=== PATIENT | male | born 1965 | race Caucasian/White ===

== ENCOUNTER 2016-11-12 07:56 | Day surgery (SDC) | payer BC ==
[2016-11-12] MEDS ORDERED: Lactated Ringers 1,000 ML IV SCH (08:10)
[2016-11-12] MEDS ORDERED: Propofol 200 MG/20 ML SDV ONE ×2 (10:21→10:44)
[2016-11-12] MEDS ORDERED: fentaNYL 100 MCG/2 ML SDV ONE (10:21)
[2016-11-12] MEDS ORDERED: Midazolam 1 MG/ML 2 ML SDV ONE (10:21)
[2016-11-12 11:46] VITALS: BP 144/89
--- NOTE | 2016-11-12 12:26 | OR ---
DATE OF PROCEDURE: 11/12/2016 PREOPERATIVE DIAGNOSIS: Colon cancer screening. POSTOPERATIVE DIAGNOSIS: Diverticulosis. PROCEDURE: Colonoscopy to the cecum. ANESTHESIA: IV anesthesia with monitored anesthesia care. INDICATIONS: This 51-year-old white male was referred for a colonoscopy for colon cancer screening. He has never had a colonoscopic exam. I counseled him for the procedure including risks and alternatives and he gave his informed consent to proceed. PROCEDURE IN DETAILS: The patient was placed in the left lateral decubitus position. IV anesthesia was administered by the Anesthesia Service. Time-out was held. A rectal exam was performed, which was unremarkable. The flexible video Olympus colonoscope was introduced through his anus, up his rectum, and out his colon all way to the cecum. Once the cecum was reached, the scope was slowly withdrawn examining the mucosa throughout. No mucosal abnormalities were noted till we reached the sigmoid colon. Here, we saw a couple of scattered diverticula. There was no bleeding or inflammation associated with them. The scope was retroflexed in the rectum with the distal rectum appearing unremarkable. The scope was straightened and removed. He tolerated the procedure well. Vaibhav Hickey MD /[id number]
== END 2016-11-12 11:48 | disposition home or self-care (01) ==
LOC: JP.SDS 07:56
PROVIDERS: ATTEND Surgery
DX: Z12.11 Encounter for screening for malignant neoplasm of colon (principal); K57.30 Diverticulosis of large intestine without perforation or abscess without bleeding; E78.00 Pure hypercholesterolemia, unspecified; E11.9 Type 2 diabetes mellitus without complications
CPT/HCPCS: 45378; J2250; J2704; J3010; J7120

== ENCOUNTER 2022-12-08 09:59 | Inpatient (IN) | payer BC ==
[2022-12-08] MEDS ORDERED: Sodium Chloride 0.9% 1,000 ML IV ONE ×2 (10:31→11:13)
[2022-12-08] MEDS ORDERED: Ondansetron 4 MG/2 ML SDV IVPUSH ONE (10:31)
[2022-12-08] MEDS ORDERED: Sodium Chloride 0.9% 10 ML Syringe FLUSH PRN ×2 (10:31→11:19)
[2022-12-08 10:49] LABS: HEMATOCRIT 51.8 % (38.4-49.7); HEMOGLOBIN 17.2 g/dL (12.9-16.9); MEAN CORPUSCULAR HEMOGLOBIN 29.7 pg (31.6-35.5); MEAN CORPUSCULAR HGB CONC 33.2 g/dL (31.6-35.5); MEAN CORPUSCULAR VOLUME 89.5 fL (81.4-99.0); PLATELET COUNT,PLT 162 K/uL (130-375); RED BLOOD CELL COUNT 5.79 M/uL (4.14-5.76); WHITE BLOOD CELL COUNT,WBC 10.4 K/uL (3.2-11.0)
[2022-12-08 11:02] LABS: APPEARANCE,URINE CLEAR (CLEAR); BILIRUBIN,URINE SMALL (NEGATIVE); COLOR,URINE YELLOW (YELLOW); GLUCOSE,URINE 500 mg/dL (NEGATIVE); KETONES,URINE 80 mg/dL (NEGATIVE); LEUKOCYTE ESTERASE,URINE NEGATIVE (NEGATIVE); NITRITE,URINE NEGATIVE (NEGATIVE); OCCULT BLOOD,URINE SMALL (NEGATIVE); PROTEIN,URINE 100 mg/dL (NEGATIVE); UROBILINOGEN,URINE 0.2 EU/dL (0.2-1.0)
[2022-12-08 11:09] LABS: AMORPHOUS SEDIMENT,URINE RARE; BACTERIA,URINE NOT SEEN; EPITHELIAL CELLS,URINE NOT SEEN; MUCUS,URINE NOT SEEN; RBC,URINE 0-5 (0-5); WBC,URINE NOT SEEN (0-5)
[2022-12-08 11:10] LABS: ALANINE AMINOTRANSFERASE,ALT 41 U/L (12-78); ALBUMIN 4.1 g/dL (3.4-5.0); ALKALINE PHOSPHATASE 91 U/L (46-116); ASPARTATE AMNIOTRANSFERASE,AST 23 U/L (15-37); BILIRUBIN TOTAL 0.9 mg/dL (0.2-1.0); BLOOD UREA NITROGEN,BUN 36 mg/dL (7-18); CALCIUM 9.1 mg/dL (8.5-10.1); CHLORIDE,CL 90 mmol/L (100-108); CREATININE 1.3 mg/dL (0.8-1.3); EST CRCL DRUG DOSING (CG) 67.58 mL/min; ESTIMATED GFR 64 mL/min (>60); GLUCOSE RANDOM 293 mg/dL (74-106); PROTEIN TOTAL,TP 8.4 g/dL (6.4-8.2); SODIUM,NA 125 mmol/L (140-148)
[2022-12-08 11:12] LABS: CARBON DIOXIDE,CO2 7 mmol/L (21-32)
[2022-12-08 11:19] LABS: ATYPICAL LYMPHOCYTES RARE; LYMPHOCYTES ABSOLUTE MAN 1.66 K/uL (0.8-3.3); LYMPHOCYTES PERCENT MAN 16 % (24-44); MONOCYTES ABSOLUTE MAN 0.62 K/uL (0.20-0.90); MONOCYTES PERCENT MAN 6 % (2-6); NEUTROPHILS ABSOLUTE MAN 8.11 K/uL (1.0-7.6); SEG NEUTROPHILS PERCENT MAN 78 % (36-66)
[2022-12-08] MEDS ORDERED: Insulin Regular, Human 100 Units/ML 3 ML Vial IVPUSH ONE (11:21)
[2022-12-08] MEDS ORDERED: 50% Dextrose in Water 50 ML Syringe IVPUSH PRN (11:21)
[2022-12-08] MEDS ORDERED: Glucagon,Human Recombinant 1 MG Vial IM PRN (11:21)
[2022-12-08] MEDS ORDERED: Sodium Chloride 0.9% 1,000 ML IV SCH ×2 (11:30→13:42)
[2022-12-08] MEDS ORDERED: Insulin Regular in 0.9 % NACL 100 ML IV SCH (12:00)
[2022-12-08 12:28] LABS: LYME AB IgG Negative (Negative)
[2022-12-08 12:33] LABS: LYME AB IgM Negative (Negative)
[2022-12-08] MEDS ORDERED: Magnesium Hydroxide 400 MG/5 ML Susp 30 ML Cup PO PRN (13:42)
[2022-12-08] MEDS ORDERED: HYDROmorphone 1 MG/ML Syringe IVPUSH PRN (13:42)
[2022-12-08] MEDS ORDERED: Ondansetron 4 MG Tab.DIS PO PRN (13:42)
[2022-12-08] MEDS ORDERED: Sennosides/Docusate Sodium 50-8.6 MG Tab PO PRN (13:42)
[2022-12-08] MEDS ORDERED: Ondansetron 4 MG/2 ML SDV IV PRN (13:42)
[2022-12-08] MEDS ORDERED: Acetaminophen 325 MG Tab PO PRN (13:42)
[2022-12-08] MEDS: Dextrose 5%-0.9% NaCl 1,000 ML IV SCH ×2 (14:45→23:18)
[2022-12-08 17:24] LABS: CALCIUM 7.6 mg/dL (8.5-10.1); CREATININE 1.1 mg/dL (0.8-1.3); EST CRCL DRUG DOSING (CG) 79.86 mL/min; MAGNESIUM 2.2 mg/dL (1.8-2.4); POTASSIUM,K 4.3 mmol/L (3.6-5.2)
[2022-12-08 17:28] LABS: ANION GAP 22.3 mmol/L (5.0-14.0)
[2022-12-08] MEDS: atorvaSTATin 20 MG Tab PO SCH (20:32)
[2022-12-08] MEDS: Pantoprazole 40 MG Tab.CR PO SCH (20:32)
[2022-12-08] MEDS ORDERED: Doxycycline 100 MG in Sodium Chloride 0.9% 100 ML IV ONE (21:00)
[2022-12-08 21:23] LABS: CALCIUM 7.6 mg/dL (8.5-10.1); EST CRCL DRUG DOSING (CG) 87.85 mL/min; POTASSIUM,K 3.9 mmol/L (3.6-5.2)
[2022-12-08 21:32] LABS: ANION GAP 17.9 mmol/L (5.0-14.0)
[2022-12-09 01:13] LABS: CALCIUM 7.5 mg/dL (8.5-10.1); CREATININE 0.9 mg/dL (0.8-1.3); EST CRCL DRUG DOSING (CG) 97.61 mL/min; POTASSIUM,K 3.5 mmol/L (3.6-5.2)
[2022-12-09 01:23] LABS: ANION GAP 15.5 mmol/L (5.0-14.0)
[2022-12-09 04:47] LABS: HEMOGLOBIN 13.4 g/dL (12.9-16.9); MEAN CORPUSCULAR HEMOGLOBIN 29.6 pg (31.6-35.5); MEAN CORPUSCULAR HGB CONC 34.4 g/dL (31.6-35.5); MEAN CORPUSCULAR VOLUME 86.1 fL (81.4-99.0); RED BLOOD CELL COUNT 4.53 M/uL (4.14-5.76); WHITE BLOOD CELL COUNT,WBC 8.1 K/uL (3.2-11.0)
[2022-12-09 04:58] LABS: CALCIUM 7.7 mg/dL (8.5-10.1); CREATININE 0.8 mg/dL (0.8-1.3); EST CRCL DRUG DOSING (CG) 109.81 mL/min; POTASSIUM,K 3.5 mmol/L (3.6-5.2)
[2022-12-09 05:19] LABS: ANION GAP 16.5 mmol/L (5.0-14.0)
[2022-12-09] MEDS: Dextrose 5%-0.9% NaCl 1,000 ML IV SCH ×2 (07:09→23:04)
[2022-12-09] MEDS: Pantoprazole 40 MG Tab.CR PO SCH ×2 (08:31→20:46)
[2022-12-09] MEDS: Aspirin 81 MG Tab.Chew PO SCH (08:31)
[2022-12-09] MEDS: Doxycycline 100 MG Cap PO SCH ×2 (08:31→20:47)
[2022-12-09 09:28] LABS: CALCIUM 7.6 mg/dL (8.5-10.1); EST CRCL DRUG DOSING (CG) 87.85 mL/min
[2022-12-09] MEDS ORDERED: Potassium Chloride 20 MEQ Tab.ER PO ONE (11:00)
[2022-12-09 13:19] LABS: ANION GAP 11.2 mmol/L (5.0-14.0); CALCIUM 7.8 mg/dL (8.5-10.1); CREATININE 0.9 mg/dL (0.8-1.3); EST CRCL DRUG DOSING (CG) 97.61 mL/min; POTASSIUM,K 3.2 mmol/L (3.6-5.2)
[2022-12-09 17:34] LABS: ANION GAP 12.6 mmol/L (5.0-14.0); CALCIUM 7.9 mg/dL (8.5-10.1); CREATININE 0.8 mg/dL (0.8-1.3); EST CRCL DRUG DOSING (CG) 109.81 mL/min; POTASSIUM,K 3.6 mmol/L (3.6-5.2)
[2022-12-09] MEDS: atorvaSTATin 20 MG Tab PO SCH (20:47)
[2022-12-09 21:25] LABS: CALCIUM 7.6 mg/dL (8.5-10.1); CREATININE 0.8 mg/dL (0.8-1.3); EST CRCL DRUG DOSING (CG) 109.81 mL/min; POTASSIUM,K 3.5 mmol/L (3.6-5.2)
[2022-12-09 21:26] LABS: ANION GAP 10.5 mmol/L (5.0-14.0)
[2022-12-10 05:14] LABS: CALCIUM 7.5 mg/dL (8.5-10.1); CREATININE 0.6 mg/dL (0.8-1.3); EST CRCL DRUG DOSING (CG) 146.42 mL/min; POTASSIUM,K 3.2 mmol/L (3.6-5.2)
[2022-12-10 05:30] LABS: ANION GAP 11.2 mmol/L (5.0-14.0)
[2022-12-10] MEDS ORDERED: metFORMIN 500 MG Tab PO SCH (08:00)
[2022-12-10] MEDS ORDERED: glipiZIDE 5 MG Tab PO SCH (08:00)
[2022-12-10] MEDS ORDERED: Empagliflozin 10 MG Tab PO SCH (08:00)
[2022-12-10] MEDS: Aspirin 81 MG Tab.Chew PO SCH (08:06)
[2022-12-10] MEDS: Doxycycline 100 MG Cap PO SCH (08:06)
[2022-12-10] MEDS: Pantoprazole 40 MG Tab.CR PO SCH (08:06)
[2022-12-10] MEDS ORDERED: Potassium Chloride 20 MEQ Tab.ER PO ONE (09:00)
[2022-12-10 10:26] VITALS: BP 150/79; PULSE 80
== END 2022-12-10 10:40 | disposition home or self-care (01) | DRG 724 ==
LOC: JP.ED 09:59 → JP.ICU 13:17
PROVIDERS: ADMIT Internal Medicine; ATTEND Internal Medicine
DX: A77.49 Other ehrlichiosis (principal); E11.10 Type 2 diabetes mellitus with ketoacidosis without coma; E87.6 Hypokalemia; E78.00 Pure hypercholesterolemia, unspecified; E66.9 Obesity, unspecified; Z20.822 Contact with and (suspected) exposure to COVID-19; E86.0 Dehydration; E78.5 Hyperlipidemia, unspecified; Z79.82 Long term (current) use of aspirin; Z79.84 Long term (current) use of oral hypoglycemic drugs; Z90.49 Acquired absence of other specified parts of digestive tract; Z86.14 Personal history of Methicillin resistant Staphylococcus aureus infection; S70.36 Insect bite (nonvenomous) of thigh; Z68.27 Body mass index [BMI] 27.0-27.9, adult
CPT/HCPCS: 36415; 80048; 80053; 81001; 82009; 82800; 82947; 83605; 83690; 83735; 85025; 85027; 86618; 86666; 96361; 96374; 99222; 99232; 99238; 99285-25; A9270-GY; J1815-GY; J2405; J3490; J7030; U0002

== ENCOUNTER 2024-07-10 14:44 | Inpatient (IN) | payer BC ==
[2024-07-10 16:43] LABS: AMORPHOUS SEDIMENT,URINE NOT SEEN; APPEARANCE,URINE CLEAR (CLEAR); BACTERIA,URINE FEW; BILIRUBIN,URINE SMALL (NEGATIVE); COLOR,URINE YELLOW (YELLOW); EPITHELIAL CELLS,URINE RARE; GLUCOSE,URINE 500 mg/dL (NEGATIVE); KETONES,URINE 80 mg/dL (NEGATIVE); LEUKOCYTE ESTERASE,URINE NEGATIVE (NEGATIVE); MUCUS,URINE RARE; NITRITE,URINE NEGATIVE (NEGATIVE); OCCULT BLOOD,URINE LARGE (NEGATIVE); PH,URINE 5.5 (5.0-8.0); PROTEIN,URINE 30 mg/dL (NEGATIVE); RBC,URINE 50-75 (0-5); UROBILINOGEN,URINE 0.2 EU/dL (0.2-1.0); WBC,URINE 0-5 (0-5)
[2024-07-10] MEDS: Sodium Chloride 0.9% 1,000 ML IV ONE ×2 (16:52→18:20)
[2024-07-10] MEDS: Alum Hydrox/Mag Hydrox/Simeth 15 ML, Lidocaine 2% 15 ML PO ONE (16:55)
[2024-07-10 16:57] LABS: HEMATOCRIT 50.8 % (38.4-49.7); HEMOGLOBIN 17.2 g/dL (12.9-16.9); MEAN CORPUSCULAR HEMOGLOBIN 30.2 pg (31.6-35.5); MEAN CORPUSCULAR HGB CONC 33.9 g/dL (31.6-35.5); MEAN CORPUSCULAR VOLUME 89.1 fL (81.4-99.0); PLATELET COUNT,PLT 296 K/uL (130-375)
[2024-07-10] MEDS: Ondansetron 4 MG/2 ML SDV IVPUSH ONE (16:57)
[2024-07-10] MEDS: Morphine 2 MG/ML SYRINGE IVPUSH ONE ×2 (16:57→18:20)
[2024-07-10 17:16] LABS: A/G RATIO 1.2 (1.2-2.2); ALANINE AMINOTRANSFERASE,ALT 19 U/L (12-78); ALBUMIN 4.4 g/dL (3.4-5.0); ALKALINE PHOSPHATASE 88 U/L (46-116); ASPARTATE AMNIOTRANSFERASE,AST 12 U/L (15-37); BLOOD UREA NITROGEN,BUN 31 mg/dL (7-18); CHLORIDE,CL 94 mmol/L (100-108); CREATININE 1.5 mg/dL (0.8-1.3); EST CRCL DRUG DOSING (CG) 57.17 mL/min; ESTIMATED GFR 54 mL/min (>60); GLUCOSE RANDOM 198 mg/dL (74-106); POTASSIUM,K 3.3 mmol/L (3.6-5.2); PROTEIN TOTAL,TP 8.2 g/dL (6.4-8.2); SODIUM,NA 134 mmol/L (140-148)
[2024-07-10 17:20] LABS: ANION GAP 30.3 mmol/L (5.0-14.0); CARBON DIOXIDE,CO2 13 mmol/L (21-32)
[2024-07-10 17:25] LABS: BAND ABSOLUTE MAN 0.63 K/uL; BAND PERCENT MAN 3 % (5-11); LYMPHOCYTES ABSOLUTE MAN 0.21 K/uL (0.8-3.3); LYMPHOCYTES PERCENT MAN 1 % (24-44); MONOCYTES ABSOLUTE MAN 1.26 K/uL (0.20-0.90); MONOCYTES PERCENT MAN 6 % (2-6); SEG NEUTROPHILS PERCENT MAN 90 % (36-66)
[2024-07-10 17:37] LABS: CARBOXYHEMOGLOBIN 1.1 % (0.0-1.6); METHEMOGLOBIN 1.3 %; O2 SATURATION ARTERIAL 95.5 % (95.0-98.0); OXYHEMOGLOBIN 93.2 %; PCO2 ARTERIAL 26.2 mmHg (35.0-42.0); PO2 ARTERIAL 89.9 mmHg (75.0-100.0)
[2024-07-10 17:39] LABS: LACTIC ACID 0.8 mmol/L (0.4-2.0)
[2024-07-10] MEDS: Iopamidol 612 MG/ML 100 ML Bottle IV SCH (18:04)
[2024-07-10] MEDS: Sodium Chloride 0.9% 80 ML IV SCH (18:04)
[2024-07-10] MEDS: Potassium Chloride 20 MEQ in Premix Bag 1 BAG IV ONE (18:22)
[2024-07-10 19:31] LABS: CALCIUM 8.7 mg/dL (8.5-10.1); CREATININE 1.4 mg/dL (0.8-1.3); EST CRCL DRUG DOSING (CG) 61.26 mL/min; POTASSIUM,K 3.3 mmol/L (3.6-5.2)
[2024-07-10 19:33] LABS: ANION GAP 27.3 mmol/L (5.0-14.0)
[2024-07-10] MEDS ORDERED: Naloxone 0.4 MG/ML SDV IVPUSH PRN (21:38)
[2024-07-10] MEDS: Morphine 4 MG/ML Syringe IVPUSH ONE (21:50)
[2024-07-10] MEDS: Lactated Ringers 1,000 ML IV SCH (21:50)
[2024-07-11] MEDS: Morphine 4 MG/ML Syringe IVPUSH ONE (04:59)
[2024-07-11 06:03] LABS: BASOPHILS PERCENT AUTO 0.2 % (0.1-1.3); EOSINOPHILS ABSOLUTE AUTO 0.04 K/uL (0.00-0.40); EOSINOPHILS PERCENT AUTO 0.3 % (0.0-5.4); HEMATOCRIT 45.4 % (38.4-49.7); IMMATURE GRAN ABSOLUTE AUTO 0.22 K/uL (0.00-0.23); IMMATURE GRAN PERCENT AUTO 1.7 % (0.0-0.7); LYMPHOCYTES ABSOLUTE AUTO 0.82 K/uL (0.8-3.3); LYMPHOCYTES PERCENT AUTO 6.3 % (11.4-47.7); MEAN CORPUSCULAR HEMOGLOBIN 30.2 pg (31.6-35.5); MEAN CORPUSCULAR VOLUME 91.3 fL (81.4-99.0); MONOCYTES ABSOLUTE AUTO 2.21 K/uL (0.20-0.90); NEUTROPHILS ABSOLUTE AUTO 9.72 K/uL (1.0-7.6); NEUTROPHILS PERCENT AUTO 74.5 % (40.0-78.1); PLATELET COUNT,PLT 208 K/uL (130-375); RED BLOOD CELL COUNT 4.97 M/uL (4.14-5.76)
[2024-07-11 06:10] LABS: BASOPHILS ABSOLUTE AUTO 0.02 K/uL (0.00-0.10)
[2024-07-11 06:18] LABS: CALCIUM 8.2 mg/dL (8.5-10.1); CREATININE 1.4 mg/dL (0.8-1.3); EST CRCL DRUG DOSING (CG) 61.26 mL/min; MAGNESIUM 2.4 mg/dL (1.8-2.4); POTASSIUM,K 3.5 mmol/L (3.6-5.2)
[2024-07-11 06:19] LABS: ANION GAP 24.5 mmol/L (5.0-14.0)
[2024-07-11] MEDS ORDERED: Glucagon,Human Recombinant 1 MG Vial IM PRN ×2 (06:40→13:54)
[2024-07-11] MEDS: 50% Dextrose in Water 50 ML Syringe IVPUSH PRN (07:40)
[2024-07-11] MEDS: Insulin Lispro 100 Units/ML 3 ML Vial SUBCUT ONE (07:40)
[2024-07-11] MEDS: 50% Dextrose in Water 50 ML Syringe IVPUSH ONE ×2 (07:43→14:22)
[2024-07-11 10:23] LABS: CALCIUM 8.6 mg/dL (8.5-10.1); CREATININE 1.2 mg/dL (0.8-1.3); EST CRCL DRUG DOSING (CG) 71.47 mL/min; POTASSIUM,K 3.9 mmol/L (3.6-5.2)
[2024-07-11 10:24] LABS: ANION GAP 20.9 mmol/L (5.0-14.0)
[2024-07-11] MEDS: Morphine 2 MG/ML SYRINGE IVPUSH ONE (11:12)
[2024-07-11] MEDS: Sodium Chloride 0.9% 500 ML IV ONE ×2 (12:29→14:29)
[2024-07-11 13:43] LABS: CALCIUM 8.3 mg/dL (8.5-10.1); CREATININE 1.1 mg/dL (0.8-1.3); EST CRCL DRUG DOSING (CG) 77.96 mL/min; POTASSIUM,K 3.3 mmol/L (3.6-5.2)
[2024-07-11 13:45] LABS: ANION GAP 26.3 mmol/L (5.0-14.0)
[2024-07-11] MEDS ORDERED: Potassium Chloride 20 MEQ in Premix Bag 1 BAG IV ONE (13:51)
[2024-07-11] MEDS ORDERED: 50% Dextrose in Water 50 ML Syringe IVPUSH PRN ×2 (13:54→14:24)
[2024-07-11 14:14] LABS: HEMOGLOBIN A1C 7.1 % (4.5-6.2)
[2024-07-11] MEDS: Insulin Regular, Human 100 Units/ML 3 ML Vial IVPUSH ONE (14:22)
[2024-07-11] MEDS ORDERED: Potassium Chloride 10% 20 MEQ/15 ML Soln 15 ML UD Cup PO PRN ×2 (14:24→15:58)
[2024-07-11] MEDS ORDERED: Magnesium Sulf/Wat 2 GM/50 mL 50 ML IV PRN (14:24)
[2024-07-11] MEDS ORDERED: Potassium Chloride 20 MEQ in Premix Bag 1 BAG IV PRN (14:24)
[2024-07-11] MEDS ORDERED: Sodium Phosphate 60 MMOLE in Sodium Chloride 0.9% 250 ML IV PRN (14:24)
[2024-07-11] MEDS: Potassium Chloride 10 MEQ in Premix Bag 1 BAG IV SCH (14:29)
[2024-07-11] MEDS: Ketorolac 15 MG/ML SDV IVPUSH ONE (14:30)
[2024-07-11] MEDS ORDERED: Sodium Chloride 0.9% 10 ML Syringe FLUSH PRN (15:16)
[2024-07-11] MEDS ORDERED: Ondansetron 4 MG/2 ML SDV IV PRN (15:16)
[2024-07-11] MEDS ORDERED: Polyethylene Glycol 3350 Powder 17 GM Packet PO PRN (15:16)
[2024-07-11 15:22] LABS: CALCIUM 8.1 mg/dL (8.5-10.1); CREATININE 1.2 mg/dL (0.8-1.3); EST CRCL DRUG DOSING (CG) 71.47 mL/min; MAGNESIUM 2.3 mg/dL (1.8-2.4); PHOSPHORUS 2.6 mg/dL (2.5-4.9); POTASSIUM,K 3.3 mmol/L (3.6-5.2)
[2024-07-11 15:23] LABS: ANION GAP 27.3 mmol/L (5.0-14.0)
[2024-07-11] MEDS: Sodium Chloride 0.9% 2,000 ML IV PRN (16:19)
[2024-07-11] MEDS: Enoxaparin 40 MG/0.4 ML Syringe SUBCUT SCH (16:20)
[2024-07-11] MEDS: Insulin Regular in 0.9 % NACL 100 ML IV SCH (16:20)
[2024-07-11] MEDS: Acetaminophen 325 MG Tab PO PRN (17:17)
[2024-07-11] MEDS: Calcium Carbonate 500 MG Tab.Chew PO PRN (17:40)
[2024-07-11] MEDS: Dextrose 5%-0.45% NaCl 1,000 ML IV PRN (18:26)
[2024-07-11 19:17] LABS: CALCIUM 7.9 mg/dL (8.5-10.1); CREATININE 1.2 mg/dL (0.8-1.3); EST CRCL DRUG DOSING (CG) 70.92 mL/min; POTASSIUM,K 3.4 mmol/L (3.6-5.2)
[2024-07-11 19:19] LABS: ANION GAP 22.4 mmol/L (5.0-14.0)
[2024-07-11] MEDS: Potassium Chloride 20 MEQ in Premix Bag 1 BAG IV PRN (19:32)
[2024-07-11] MEDS: Ketorolac 30 MG/ML SDV IVPUSH PRN (21:11)
[2024-07-11 21:32] LABS: MAGNESIUM 2.1 mg/dL (1.8-2.4); PHOSPHORUS 1.8 mg/dL (2.5-4.9); POTASSIUM,K 3.6 mmol/L (3.6-5.2)
[2024-07-11] MEDS: atorvaSTATin 20 MG Tab PO SCH (21:37)
[2024-07-11] MEDS: HYDROmorphone 0.5 MG/0.5 ML Syringe IVPUSH ONE (21:57)
[2024-07-11 23:27] LABS: CALCIUM 7.9 mg/dL (8.5-10.1); CREATININE 1.3 mg/dL (0.8-1.3); EST CRCL DRUG DOSING (CG) 65.47 mL/min; POTASSIUM,K 3.9 mmol/L (3.6-5.2)
[2024-07-11 23:28] LABS: ANION GAP 18.9 mmol/L (5.0-14.0)
[2024-07-12] MEDS: Potassium Chloride 20 MEQ in Premix Bag 1 BAG IV PRN (01:50)
[2024-07-12 03:36] LABS: ANION GAP 17.7 mmol/L (5.0-14.0); CALCIUM 8.2 mg/dL (8.5-10.1); CREATININE 1.3 mg/dL (0.8-1.3); EST CRCL DRUG DOSING (CG) 65.47 mL/min; MAGNESIUM 2.1 mg/dL (1.8-2.4); PHOSPHORUS 1.5 mg/dL (2.5-4.9); POTASSIUM,K 3.7 mmol/L (3.6-5.2)
[2024-07-12 05:24] LABS: BASOPHILS PERCENT AUTO 0.2 % (0.1-1.3); EOSINOPHILS PERCENT AUTO 0.2 % (0.0-5.4); HEMATOCRIT 39.3 % (38.4-49.7); HEMOGLOBIN 13.5 g/dL (12.9-16.9); IMMATURE GRAN ABSOLUTE AUTO 0.03 K/uL (0.00-0.23); IMMATURE GRAN PERCENT AUTO 0.4 % (0.0-0.7); LYMPHOCYTES PERCENT AUTO 10.8 % (11.4-47.7); MEAN CORPUSCULAR HEMOGLOBIN 30.2 pg (31.6-35.5); MEAN CORPUSCULAR HGB CONC 34.4 g/dL (31.6-35.5); MEAN CORPUSCULAR VOLUME 87.9 fL (81.4-99.0); MONOCYTES ABSOLUTE AUTO 1.18 K/uL (0.20-0.90); MONOCYTES PERCENT AUTO 14.1 % (3.3-12.6); NEUTROPHILS ABSOLUTE AUTO 6.21 K/uL (1.0-7.6); NEUTROPHILS PERCENT AUTO 74.3 % (40.0-78.1); PLATELET COUNT,PLT 180 K/uL (130-375); RED BLOOD CELL COUNT 4.47 M/uL (4.14-5.76); WHITE BLOOD CELL COUNT,WBC 8.4 K/uL (3.2-11.0)
[2024-07-12 05:25] LABS: BASOPHILS ABSOLUTE AUTO 0.02 K/uL (0.00-0.10); EOSINOPHILS ABSOLUTE AUTO 0.02 K/uL (0.00-0.40)
[2024-07-12 05:43] LABS: HEMOGLOBIN A1C 7.1 % (4.5-6.2)
[2024-07-12] MEDS: Potassium Chloride 10% 20 MEQ/15 ML Soln 15 ML UD Cup PO PRN (06:00)
[2024-07-12] MEDS: Sodium Chloride 0.9% 500 ML IV ONE (07:00)
[2024-07-12 07:18] LABS: CALCIUM 8.1 mg/dL (8.5-10.1); CREATININE 1.2 mg/dL (0.8-1.3); EST CRCL DRUG DOSING (CG) 70.92 mL/min
[2024-07-12] MEDS: Aspirin 81 MG Tab.Chew PO SCH (09:31)
[2024-07-12 10:02] LABS: PHOSPHORUS 1.3 mg/dL (2.5-4.9); POTASSIUM,K 3.6 mmol/L (3.6-5.2)
[2024-07-12 11:14] LABS: CREATININE 1.2 mg/dL (0.8-1.3); EST CRCL DRUG DOSING (CG) 70.92 mL/min; POTASSIUM,K 3.9 mmol/L (3.6-5.2)
[2024-07-12 11:24] LABS: ANION GAP 15.9 mmol/L (5.0-14.0)
[2024-07-12] MEDS: Potassium Chloride 10 MEQ in Premix Bag 1 BAG IV SCH (13:52)
[2024-07-12 14:18] LABS: CALCIUM 7.9 mg/dL (8.5-10.1); CREATININE 1.3 mg/dL (0.8-1.3); EST CRCL DRUG DOSING (CG) 63.95 mL/min; PHOSPHORUS 0.9 mg/dL (2.5-4.9); POTASSIUM,K 4.3 mmol/L (3.6-5.2)
[2024-07-12 14:23] LABS: ANION GAP 12.3 mmol/L (5.0-14.0)
[2024-07-12] MEDS: Sodium Phosphate 60 MMOLE in Sodium Chloride 0.9% 250 ML IV PRN (15:12)
[2024-07-12] MEDS: Empagliflozin 25 MG Tab PO SCH (15:21)
[2024-07-12] MEDS ORDERED: Non-Formulary Medication 1 Each (Metformin [Glucophage] 1,000 MG Tablet) PO SCH (17:00)
[2024-07-12] MEDS: metFORMIN 500 MG Tab PO SCH (17:21)
[2024-07-12 18:44] LABS: CALCIUM 7.9 mg/dL (8.5-10.1); CREATININE 1.3 mg/dL (0.8-1.3); EST CRCL DRUG DOSING (CG) 63.95 mL/min; POTASSIUM,K 3.7 mmol/L (3.6-5.2)
[2024-07-12 18:47] LABS: ANION GAP 14.7 mmol/L (5.0-14.0)
[2024-07-12 21:14] LABS: MAGNESIUM 1.9 mg/dL (1.8-2.4); POTASSIUM,K 3.6 mmol/L (3.6-5.2)
[2024-07-12] MEDS: Tamsulosin 0.4 MG Cap.ER PO SCH (21:20)
[2024-07-12 22:22] LABS: CALCIUM 8.1 mg/dL (8.5-10.1); EST CRCL DRUG DOSING (CG) 83.14 mL/min; POTASSIUM,K 3.6 mmol/L (3.6-5.2)
[2024-07-12 22:23] LABS: ANION GAP 10.6 mmol/L (5.0-14.0)
[2024-07-13 02:28] LABS: EST CRCL DRUG DOSING (CG) 83.14 mL/min; MAGNESIUM 1.9 mg/dL (1.8-2.4); PHOSPHORUS 2.1 mg/dL (2.5-4.9); POTASSIUM,K 3.7 mmol/L (3.6-5.2)
[2024-07-13 02:29] LABS: ANION GAP 10.7 mmol/L (5.0-14.0)
[2024-07-13 06:23] LABS: ANION GAP 9.9 mmol/L (5.0-14.0); CALCIUM 8.2 mg/dL (8.5-10.1); EST CRCL DRUG DOSING (CG) 83.14 mL/min; POTASSIUM,K 3.9 mmol/L (3.6-5.2)
[2024-07-13] MEDS: Potassium Chloride 10 MEQ in Premix Bag 1 BAG IV SCH (07:48)
[2024-07-13] MEDS ORDERED: Glucose Gel 15 GM in 37.5 GM Tube PO PRN (08:09)
[2024-07-13] MEDS ORDERED: 50% Dextrose in Water 50 ML Syringe IV PRN (08:09)
[2024-07-13 08:25] LABS: MAGNESIUM 1.9 mg/dL (1.8-2.4); PHOSPHORUS 1.9 mg/dL (2.5-4.9); POTASSIUM,K 3.4 mmol/L (3.6-5.2)
[2024-07-13] MEDS: Potassium Chloride 20 MEQ Tab.ER PO ONE (09:05)
[2024-07-13] MEDS: Insulin Lispro 100 Unit/ML 3 ML KwikPen SUBCUT SCH (11:35)
[2024-07-13 17:20] LABS: CALCIUM 8.4 mg/dL (8.5-10.1); CREATININE 1.1 mg/dL (0.8-1.3); EST CRCL DRUG DOSING (CG) 75.58 mL/min; POTASSIUM,K 4.1 mmol/L (3.6-5.2)
[2024-07-13 17:21] LABS: ANION GAP 11.1 mmol/L (5.0-14.0)
[2024-07-14 06:22] LABS: CALCIUM 8.3 mg/dL (8.5-10.1); CREATININE 0.7 mg/dL (0.8-1.3); EST CRCL DRUG DOSING (CG) 118.77 mL/min; POTASSIUM,K 3.8 mmol/L (3.6-5.2)
[2024-07-14 06:28] LABS: ANION GAP 10.8 mmol/L (5.0-14.0)
[2024-07-14 13:35] VITALS: BP 142/79; PULSE 91
== END 2024-07-14 12:44 | disposition home or self-care (01) | DRG 420 ==
LOC: JP.ED 14:44 → JP.ICU 07-11 14:37
PROVIDERS: ADMIT Hospitalist; ATTEND Hospitalist
PROC: 4A033R1 Measurement of Arterial Saturation, Peripheral, Percutaneous Approach (ICD-10-PCS; principal; 2024-07-10)
DX: E11.10 Type 2 diabetes mellitus with ketoacidosis without coma (principal); N13.2 Hydronephrosis with renal and ureteral calculous obstruction; E86.0 Dehydration; E78.00 Pure hypercholesterolemia, unspecified; E66.9 Obesity, unspecified; F15.90 Other stimulant use, unspecified, uncomplicated; F12.90 Cannabis use, unspecified, uncomplicated; Z79.82 Long term (current) use of aspirin; Z79.84 Long term (current) use of oral hypoglycemic drugs; Z79.899 Other long term (current) drug therapy; Z79.01 Long term (current) use of anticoagulants; Z90.49 Acquired absence of other specified parts of digestive tract; Z68.25 Body mass index [BMI] 25.0-25.9, adult
CPT/HCPCS: 36415; 36600; 74176; 74176-26; 74177; 80048; 80053; 81001; 82009; 82010; 82803; 82947; 83036; 83605; 83690; 83735; 84100; 84132; 85025; 87040; 87428-QW; 96361; 96365; 96366; 96375; 96376; 99222; 99231; 99232; 99238; 99285; 99285-25; A9270-GY; J1650; J1815; J1815-GY; J1885; J2270; J2405; J3480; J7120; J7799; Q9967

== ENCOUNTER 2024-12-05 16:57 | Emergency (ER) | payer BC ==
[2024-12-05 19:59] LABS: BASE EXCESS VENOUS 3.4 mm/L; BICARBONATE,VENOUS 26.7 mmol/L; O2 SATURATION VENOUS 84.7; OXYHEMOGLOBIN 82.0 %; PCO2 VENOUS 37.6 mm/Hg; PH,VENOUS 7.465 (7.350-7.450); PO2 VENOUS 49.5 mm/Hg; TOTAL HEMOGLOBIN 16.6 g/dL (13.5-18.0)
[2024-12-05 20:23] LABS: BASOPHILS ABSOLUTE AUTO 0.03 K/uL (0.00-0.10); BASOPHILS PERCENT AUTO 0.2 % (0.1-1.3); EOSINOPHILS ABSOLUTE AUTO 0.07 K/uL (0.00-0.40); EOSINOPHILS PERCENT AUTO 0.5 % (0.0-5.4); IMMATURE GRAN ABSOLUTE AUTO 0.08 K/uL (0.00-0.23); IMMATURE GRAN PERCENT AUTO 0.6 % (0.0-0.7); LYMPHOCYTES ABSOLUTE AUTO 0.96 K/uL (0.8-3.3); LYMPHOCYTES PERCENT AUTO 7.0 % (11.4-47.7); MONOCYTES ABSOLUTE AUTO 0.95 K/uL (0.20-0.90); MONOCYTES PERCENT AUTO 6.9 % (3.3-12.6); NEUTROPHILS ABSOLUTE AUTO 11.71 K/uL (1.0-7.6); NEUTROPHILS PERCENT AUTO 84.8 % (40.0-78.1); PLATELET COUNT,PLT 273 K/uL (130-375); RED BLOOD CELL COUNT 5.34 M/uL (4.14-5.76); WHITE BLOOD CELL COUNT,WBC 13.8 K/uL (3.2-11.0)
[2024-12-05 20:28] LABS: A/G RATIO 1.2 (1.2-2.2); ALANINE AMINOTRANSFERASE,ALT 29 U/L (12-78); ASPARTATE AMNIOTRANSFERASE,AST 13 U/L (15-37); BILIRUBIN TOTAL 0.8 mg/dL (0.2-1.0); BLOOD UREA NITROGEN,BUN 15 mg/dL (7-18); CARBON DIOXIDE,CO2 26 mmol/L (21-32); CHLORIDE,CL 100 mmol/L (100-108); CREATININE 0.8 mg/dL (0.8-1.3); EST CRCL DRUG DOSING (CG) 107.20 mL/min; ESTIMATED GFR 103 mL/min (>60); GLUCOSE RANDOM 185 mg/dL (74-106); POTASSIUM,K 3.4 mmol/L (3.6-5.2); PROTEIN TOTAL,TP 8.0 g/dL (6.4-8.2); SODIUM,NA 139 mmol/L (140-148)
[2024-12-05 21:23] LABS: APPEARANCE,URINE SLIGHTLY CLOUDY (CLEAR); GLUCOSE,URINE NEGATIVE (NEGATIVE); OCCULT BLOOD,URINE TRACE-INTACT (NEGATIVE)
[2024-12-05 21:32] LABS: EPITHELIAL CELLS,URINE RARE
[2024-12-05] MEDS: Ondansetron 4 MG/2 ML SDV IVPUSH ONE (21:36)
[2024-12-05 23:10] VITALS: BP 138/73; PULSE 85
== END 2024-12-05 23:11 | disposition home or self-care (01) ==
LOC: JP.ED 16:57
DX: E10.9 Type 1 diabetes mellitus without complications (principal); E78.00 Pure hypercholesterolemia, unspecified; Z79.82 Long term (current) use of aspirin; Z79.899 Other long term (current) drug therapy; Z79.84 Long term (current) use of oral hypoglycemic drugs
CPT/HCPCS: 36415; 80053; 81001; 82009; 82803; 85025; 96361; 96374; 96375; 99284; J2405; J2470; J7030